=== PATIENT | female | born 1985 | race Caucasian/White ===

== ENCOUNTER 2019-12-17 19:41 | Emergency (ER) | payer SELFPAY ==
[2019-12-17] MEDS: SODIUM CHLORIDE 0.9% (FLUSH) 10 ML SYG IV PRN (20:00)
[2019-12-17] MEDS: SODIUM CHLORIDE 0.9% 1000ML 1,000 ML IVS ONE (20:23)
--- NOTE | 2019-12-17 20:39 | ED.PDOC ---
History of Present Illness - General Chief Complaint: Drug or Alcohol Abuse Stated Complaint: took a "morales" Time Seen by Provider: 12/17/19 20:16 Source: patient, RN notes reviewed, Vital Signs reviewed Exam Limitations: no limitations - History of Present Illness Initial Comments: Patient is a 34-year-old white female who presents with complaints of dizziness and nausea. Patient drank a Antoinette tonight and then took ecstasy. Timing/Duration: 1-3 hours Severity: moderate Improving Factors: nothing Worsening Factors: nothing Associated Symptoms: chest pain, diaphoresis, fever/chills - Chills only, loss of appetite, malaise, nausea/vomiting - Nausea, shortness of breath, weakness Allergies/Adverse Reactions: Allergies Aspirin Allergy (Verified 12/17/19 20:04) Ketorolac Tromethamine [From Toradol] Allergy (Verified 12/17/19 20:04) Review of Systems - Review of Systems Constitutional: States: see HPI, diaphoresis, weakness. Denies: chills, fever, malaise EENTM: States: see HPI, blurred vision, throat pain. Denies: double vision Respiratory: States: no symptoms reported Cardiology: States: no symptoms reported. Denies: chest pain, edema, palpitations, syncope Gastrointestinal/Abdominal: States: see HPI, nausea. Denies: abdominal pain, diarrhea, vomiting Genitourinary: States: no symptoms reported Musculoskeletal: States: no symptoms reported. Denies: back pain, neck pain Skin: States: no symptoms reported. Denies: change in color, rash Neurological: States: anxiety, depressed, tingling Endocrine: States: no symptoms reported Hematologic/Lymphatic: States: no symptoms reported All other Systems: No Change from Baseline Family Medical History - Family History Mother Family History: No Known Physical Exam - Physical Exam General Appearance: Alert, Anxious, Restless, Well Developed, Well Groomed, Well Hydrated, Well Nourished Eye Exam: bilateral normal Ears, Nose, Throat: hearing grossly normal, normal ENT inspection, normal pharynx Neck: non-tender, full range of motion, supple, normal inspection Respiratory: chest non-tender, lungs clear, normal breath sounds, no respiratory distress, no accessory muscle use Cardiovascular/Chest: normal peripheral pulses, no edema, no gallop, no murmur, tachycardia Peripheral Pulses: radial,right: 2+, radial,left: 2+ Gastrointestinal/Abdominal: normal bowel sounds, non tender, soft, no organomegaly Rectal Exam: normal exam Back Exam: normal inspection, no CVA tenderness, CVA tenderness (R) Extremity: normal range of motion, non-tender, normal inspection, no pedal edema 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 12/17/19 22:15 Poison control was contacted and recommended symptomatic treatment. Patient is much improved. Her heart rate is down to 82. Her symptoms have resolved. Patient is ready for discharge home. I discussed this plan of care with the patient she voices understanding and agreement. Patient will go back to her sponsor and get sober again. Abran Alexis M.D. #[id number] - Results/Orders Results/Orders: 12/17/19 20:16 IV Care:Saline Lock per Protoc QSHIFT Telemetry Q4H URINE DRUG SCREEN, 7 ASSAY Stat Sodium Chloride 0.9% (Flush) [Saline Flush Syringe] 10 ml IV PRN PRN URINALYSIS Stat 12/17/19 20:30 EKG STAT Laboratory Results - last 24 hr 12/17/19 12/17/19 12/17/19 20:26 20:26 20:26 WBC 5.8 RBC 4.50 Hgb 13.6 Hct 40.8 MCV 90.6 MCH 30.3 MCHC 33.4 RDW 14.2 Plt Count 150 MPV 10.3 Absolute Neuts (auto) 3.30 Absolute Lymphs (auto) 2.00 Absolute Monos (auto) 0.30 Absolute Eos (auto) 0.10 Absolute Basos (auto) 0.10 Neutrophils % 57.1 Lymphocytes % 33.9 Monocytes % 5.9 Eosinophils % 1.8 Basophils % 1.3 Sodium 139 Potassium 3.5 L Chloride 107 Carbon Dioxide 24 Anion Gap 11.5 L BUN 9 Creatinine 0.69 BUN/Creatinine Ratio 13.0 Random Glucose 123 H Serum Osmolality 277.6 Calcium 9.1 Total Bilirubin 0.5 AST 21 ALT 9 L Alkaline Phosphatase 60 Creatine Kinase 70 CK-MB (CK-2) 0.6 CK-MB (CK-2) % Not Reportable Troponin I < 0.02 Serum Total Protein 7.5 Albumin 4.3 Globulin 3.2 Albumin/Globulin Ratio 1.3 Serum HCG, Qual Salicylates < 4.0 Acetaminophen < 10.0 L Ethyl Alcohol < 5.40 12/17/19 20:26 WBC RBC Hgb Hct MCV MCH MCHC RDW Plt Count MPV Absolute Neuts (auto) Absolute Lymphs (auto) Absolute Monos (auto) Absolute Eos (auto) Absolute Basos (auto) Neutrophils % Lymphocytes % Monocytes % Eosinophils % Basophils % Sodium Potassium Chloride Carbon Dioxide Anion Gap BUN Creatinine BUN/Creatinine Ratio Random Glucose Serum Osmolality Calcium Total Bilirubin AST ALT Alkaline Phosphatase Creatine Kinase CK-MB (CK-2) CK-MB (CK-2) % Troponin I Serum Total Protein Albumin Globulin Albumin/Globulin Ratio Serum HCG, Qual Negative Salicylates Acetaminophen Ethyl Alcohol Vital Signs 12/17/19 12/17/19 19:45 20:16 Temperature 98.3 F Pulse Rate 109 H Pulse Rate [ 109 H 109 H tele monitor] Respiratory 18 Rate Blood Pressure 148/99 [Left Arm] O2 Sat by Pulse 99 Oximetry Departure - Departure Clinical Impression: Ecstasy poisoning Qualifiers: Encounter type: initial encounter Injury intent: accidental or unintentional Qualified Code(s): T43.641A - Poisoning by ecstasy, accidental (unintentional), initial encounter Time of Disposition: 22:17 Disposition: Discharge to Home or Self Care Condition: Good Departure Forms: ED Discharge - Pt. Copy, Patient Portal Self Enrollment Instructions: DI for Drug Overdose in Adults Diet: resume usual diet Activity: increase activity as tolerated Referrals: Shoaib Puentes MD [Active Staff] - 1-2 Weeks
[2019-12-17 22:35] VITALS: BP 128/94; TEMP 97.8; O2SAT 98
== END 2019-12-17 22:30 | disposition home or self-care (01) ==
LOC: ER 19:41
DX: T43.641A Poisoning by ecstasy, accidental (unintentional), initial encounter (principal); R42 Dizziness and giddiness; R07.9 Chest pain, unspecified; R11.2 Nausea with vomiting, unspecified; Y92.9 Unspecified place or not applicable
CPT/HCPCS: 36415; 80053; 80320; 80329; 82550; 82553; 84484; 84703; 85025; 93005; A4216; J7030